=== PATIENT | male | born 1960 | race African-American/Black ===

== ENCOUNTER → 2020-03-15 | Outpatient (CLI) | payer OTHER ==
[~2020-03-15] MED LIST: DULA0.75 SQ; METF10007 PO; PRAZ1CAP2 PO; SIMV20TA18 PO; SPIR50TA4 PO
[2020-03-15 15:37] LABS: BASO % 1 % (0-3); EOS # 0.1 x10^3/uL (0.0-0.7); EOS % 2 % (0-3); HEMATOCRIT 37.6 % (39.0-53.0); HEMOGLOBIN 12.7 g/dL (13.0-17.5); LYMPH # 1.4 x10^3/uL (1.0-4.8); LYMPH % 25 % (24-48); MEAN CORPUSCULAR HEMOGLOBIN 29 pg (25-35); MEAN CORPUSCULAR HGB CONC 34 g/dL (31-37); MEAN CORPUSCULAR VOLUME 85 fL (79-100); MONO # 0.4 x10^3/uL (0.0-1.1); MONO % 6 % (0-9); NEUT # 3.9 x10^3/uL (1.8-7.7); NEUT % 66 % (31-73); PLATELET COUNT 232 x10^3/uL (140-400); RED BLOOD COUNT 4.41 x10^6/uL (4.30-5.70); RED CELL DISTRIBUTION WIDTH 15.9 % (11.5-14.5); WHITE BLOOD COUNT 5.8 x10^3/uL (4.0-11.0)
[2020-03-15 15:46] LABS: PROTHROMBIN TIME PATIENT 13.5 SEC (11.7-14.0)
--- NOTE | 2020-03-15 15:47 | EKG ---
[facility] [address] [place] [address] Test Date: 2020-03-15 Test Time: 15:46:35 Pat Name: HAFSA GOLDEN Department: Room: Gender: M Miner Helper: SETH : 1960 Requested By: BECK OJEDA Order Number: [id number] Reading MD: Juan Munoz MD Measurements Intervals [place] Rate: 92 P: 59 DC: 162 QRS: 33 QRSD: 78 T: 41 QT: 326 QTc: 408 Interpretive Statements SINUS RHYTHM NON-SPECIFIC ST/T CHANGES Electronically Signed On 03-17-2020 11:41:59 CDT by Juan Munoz MD
[2020-03-15 15:53] LABS: ALBUMIN 3.5 g/dL (3.4-5.0); C-REACTIVE PROTEIN 10.7 mg/L (0-3.3); CALCIUM 8.6 mg/dL (8.5-10.1); GFR 92.2; POTASSIUM 4.2 mmol/L (3.5-5.1)
--- NOTE | 2020-03-15 16:17 | RAD ---
EXAM: Chest, 2 views. HISTORY: Preoperative evaluation. COMPARISON: None. FINDINGS: 2 views of the chest are obtained. There is no infiltrate, pleural effusion or pneumothorax. There is linear atelectasis or scarring within the lingula. IMPRESSION: No acute pulmonary finding. Electronically signed by: Marsha Balderas MD (03/15/2020 4:14 PM) [id number]
[2020-03-16 02:09] LABS: HEMOGLOBIN A1C 6.6 % (4.8-5.6)
== END ==
LOC: SURGPAT 14:30
PROVIDERS: ATTEND Orthopaedic Surgery
DX: Z01.818 Encounter for other preprocedural examination (principal); Z11.59 Encounter for screening for other viral diseases; M25.551 Pain in right hip
CPT/HCPCS: 36415; 71046; 80048; 82040; 82306; 83036; 85025; 85610; 85730; 86140; 87641; 93005

== ENCOUNTER → 2020-03-25 | Outpatient (CLI) | payer OTHER | END | disposition home or self-care (01) | LOC: LAB 14:17 | PROVIDERS: ATTEND Orthopaedic Surgery | DX: Z11.59 Encounter for screening for other viral diseases (principal) | CPT/HCPCS: U0003-CS ==

== ENCOUNTER 2020-03-29 07:30 | Inpatient (IN) | payer OTHER ==
[~2020-03-29] VITALS: Ht 176.5 cm; Wt 145.1 kg
[~2020-03-29 07:30] MED LIST changes: +HYDROmorphone 2 MG/ML VIAL IV PRN; +IV RINGERS,LACTATED 1000ML 1,000 ML IV SCH; +LIDOCAINE 1% PF 2 ML VIAL. ID PRN; +MORPHINE SULFATE 2 MG/ML VIAL. IV PRN; +MORPHINE SULFATE 5 MG, KETOROLAC 30MG VIAL 30 MG, ROPIVacaine 0.5% PF 60 ML, EPINEPHrin... INT ART ONE; +ONDANSETRON PF 4 MG/2 ML VIAL. IV PRN; +PROCHLORPERAZINE 10 MG/2 ML VIAL. IV PRN; +fentaNYL PF VIAL 100 MCG/2 ML VIAL IV PRN
[2020-03-29] MEDS ORDERED: LIDOCAINE 2% PF 5 ML VIAL. ONE (12:03)
[2020-03-29] MEDS ORDERED: PROPOFOL 10 MG/ML (20ML) VIAL. IV ONE (12:03)
[2020-03-29] MEDS ORDERED: ONDANSETRON PF 4 MG/2 ML VIAL. ONE ×2 (12:03→15:08)
[2020-03-29] MEDS ORDERED: DEXAMETHASONE SOD PHOS 4 MG/ML VIAL ONE ×2 (12:03→15:08)
[2020-03-29] MEDS ORDERED: fentaNYL PF VIAL 100 MCG/2 ML VIAL ONE ×4 (12:31→22:41)
[2020-03-29] MEDS ORDERED: MIDAZOLAM HCL/PF 2 MG/2 ML VIAL. ONE (12:32)
[2020-03-29] MEDS ORDERED: MELOXICAM 7.5 MG TABLET PO PRN (13:00)
[2020-03-29] MEDS ORDERED: TRANEXAMIC ACID 1,000 MG in IV NS 50ML -- 1ST BAG INJ ONE (13:00)
[2020-03-29] MEDS ORDERED: ACETAMINOPHEN 500 MG TABLET PO PRN (13:00)
[2020-03-29] MEDS ORDERED: GABAPENTIN 300 MG CAPSULE. PO PRN (13:00)
[2020-03-29 13:33] LABS: PROTHROMBIN TIME PATIENT 12.6 SEC (11.7-14.0)
--- NOTE | 2020-03-29 14:38 | HP ---
ADMIT DATE: 03/29/2020 PREOPERATIVE HISTORY AND PHYSICAL CHIEF COMPLAINT: Right hip pain. HISTORY OF PRESENT ILLNESS: The patient is a 59-year-old male who had initially seen Dr. Luis before he left surgical specialty center at [facility] and was apparently referred to another physician in [facility] for a total hip arthroplasty and he reports for about the past year, increased pain in the right hip area and increasing pain to turn his leg outward and really hurts to walk, especially with increased activity. He also has some numbness in the front of his hip, numbness in the front of his thigh as well, particularly at night. PAST MEDICAL HISTORY: Borderline diabetic. PAST SURGICAL HISTORY: Right hip replacement in 2017, left leg surgery, spine surgery, appendectomy and eye surgeries. FAMILY HISTORY: Mother and father are alive and healthy as well as 3 brothers, 5 sisters and 2 daughters, all healthy. SOCIAL HISTORY: Denies smoking, alcohol or drug use. MEDICATIONS: List is significant for metformin, simvastatin, paroxetine, Hyzaar, and Tylenol. ALLERGIES: SEASONAL ALLERGIES TO [place]WE[place]. REVIEW OF SYSTEMS: Indicate that he got evaluated by Dr. Solano, primary care physician yesterday and received medical evaluation and clearance. He denies any chest pain, shortness of breath, fever, chills or constitutional symptoms. Basic complaints are only the right hip pain, anterior thigh numbness and radiating pain down the right leg. PHYSICAL EXAMINATION: HEENT: Atraumatic, normocephalic. HEART: Regular rate and rhythm. LUNGS: Clear to auscultation bilaterally. ABDOMEN: Benign. EXTREMITIES: Examination of the right hip reveals pain on external rotation and with ambulation, does not seem to be grossly unstable at present, leg lengths are equal. He does have some paresthesia over the anterior thigh in about a football type area. He hurts at any extremes of range of motion of the right hip. Normal examination of the contralateral hip aside from slight terminal range of motion restriction and normal alignment, stability, bilateral knees and ankles and also some minor trochanteric bursitis over the right hip. IMAGING: X-rays show a malaligned acetabular component, well-fixed femoral component and showing significant superior wear and edge-loading of the polyethylene on the right total hip. The acetabular component is certainly malpositioned and there is no clear evidence of loosening, however. ASSESSMENT: 1. History of right total hip arthroplasty. 2. Right hip pain and acetabular component malposition and wear. 3. Osteoarthritis, left hip. TREATMENT PLAN: I went over the x-rays with him and we had talked in detail previously about the malpositioning of the acetabular component causing the wear, it is not clear how long this was going on or foot was this way from the start or had moved, but he is exhibiting significant wear from the component placed too vertically and needs revision of the acetabular component. He also has degenerative change in the left hip, that pain is not as severe as what he is experiencing on the right. He wished to proceed with revision of the right hip and we had discussed the possibility of instability, nerve or blood vessel damage, leg length inequality, medical or other anesthetic complications among others and covered risks, benefits, postoperative course in detail. All his questions were answered and he wishes to proceed with surgical evaluation and treatment, which can occur today following his evaluation and preoperative primary care physician evaluation. BECK OJEDA MD DR: DEAN/cathy JOB#: [id number] / [id number]
[2020-03-29] MEDS ORDERED: TRANEXAMIC ACID 1,000 MG in IV NS 50ML -- 2ND BAG INJ ONE (15:00)
[2020-03-29] MEDS ORDERED: SEVOFLURANE 31 TO 60 MINUTES. IH ONE (15:08)
[2020-03-29] MEDS ORDERED: SEVOFLURANE > 120 MINUTES. IH ONE (17:48)
[2020-03-29] MEDS ORDERED: ceFAZolin SODIUM IV Push 1 GM VIAL. IVP ONE (19:13)
[2020-03-29] MEDS ORDERED: VANCOMYCIN 1 GM VIAL. ONE (21:41)
[2020-03-29] MEDS: fentaNYL PF VIAL 100 MCG/2 ML VIAL IV PRN ×2 (22:45→22:55)
[2020-03-29 23:00] VITALS: BP 113/74
[2020-03-29] MEDS ORDERED: diphenhydrAMINE 50 MG/ML VIAL IVP PRN (23:00)
[2020-03-29] MEDS ORDERED: IV NORMAL SALINE 1000ML BAG 1,000 ML IV SCH (23:00)
[2020-03-29] MEDS ORDERED: CALCIUM CARBONATE 500 MG TAB.CHEW PO PRN (23:00)
[2020-03-29] MEDS ORDERED: 0.9 % SODIUM CHLORIDE 10 ML DISP.SYRIN. IV PRN (23:00)
[2020-03-29] MEDS ORDERED: fentaNYL PF VIAL 100 MCG/2 ML VIAL IVP PRN (23:00)
[2020-03-29] MEDS ORDERED: ZOLPIDEM 5 MG TABLET. PO PRN (23:00)
[2020-03-29] MEDS ORDERED: DEXTROSE 50% 25 GM / 50ML DISP.SYRIN. IV PRN (23:00)
[2020-03-29] MEDS ORDERED: PROCHLORPERAZINE 5 MG TABLET. PO PRN (23:00)
[2020-03-29 23:30] VITALS: BP 107/67
--- NOTE | 2020-03-29 23:47 | PDOC4 ---
Operative Note Operative Note Date of surgery: 03/29/2020 Preoperative diagnosis: Painful right total hip arthroplasty with acetabular malposition and superior polyethylene wear Postoperative diagnosis: Same with extensive formation heterotopic acetabular bone. Operative procedure: Extensive debridement and revision acetabular component to a dual mobility construct Surgeon: Kary Captain Of Guards: Shady fernandez Anesthesia: General Estimated blood loss: 400 cc Complications: None Operative indications: Please see my orthopedic clinic note and detailed preoperative history and physical for detailed operative indications and note that the patient has had about a year of severe pain from his total hip arthroplasty which was done in 2017. He was found to have malposition and severe wear of his acetabular polyethylene. I went over with him the malposition and the need for repositioning of the acetabulum and the concern for possible instability infection nerve or blood vessel damage leg length inequality medical or other anesthetic complications among others all his questions were answered and he wishes to proceed with surgical evaluation and treatment having given informed consent Operative text: Patient was identified procedure verified patient placed in the supine position on the [place] fracture table. After adequate amounts of general anesthesia were administered he was positioned with both legs placed in traction boots with both legs and minimal traction. The right hip was prepped and draped in the standard sterile fashion and after timeout was performed patient procedure identified and verified an anterior approach was carried out to the right hip as follows: An incision was made just lateral and distal to the ante rior superior iliac spine extending along the course of the tensor fascia lana. The fascia was opened and tensor fascia lana was retracted laterally and the investing fascia was used to protect the rectus femoris and other anterior structures as the anterior hip capsule was exposed. An H-type capsulotomy was performed to expose the anterior hip joint and noted to have significant heterotopic bone formation and calcification in the hip capsule. The lateral aspect of the acetabulum in particular was noted to be very overgrown with heterotopic bone and despite release of the capsule was noted to be very stiff and difficult to dislocate. Despite external maximal rotation the overgrown bone was noted to capture the unstable femoral head from the vertically placed acetabular cup and severely worn liner. When the femoral head was finally able to be dislocated due to removal of the overgrown bone the femoral head was tapped off the femoral stem and the acetabulum was exposed and due to the fact that an elevated liner and screw fixation was implemented the liner was removed by backing it out with a screw. The acetabular screws were removed and the polyethylene had to be trimmed in an attempt to reinsert and use it as a stabilizer for the acetabular removal tool. The blades were carefully placed around the periphery of the acetabulum which was loosened with essentially no bone loss. Reaming was carried out up to a size 55 and slight medialization carried out under fluoroscopic guidance. Thorough irrigation was carried out with bactisure followed by a liter of normal saline solution a size 56 cluster hole Biomet ingrowth acetabular cup was inserted and fixed with a single superiorly directed screw with excellent fixation. The acetabular cup was placed in proper inclination and slight anteversion as verified under fluoroscopic guidance. To help with concerns of instability a dual mobility construct was trial fit initially with a -3 mm total neck length which resulted in a slightly shorter leg length and offset on the right compared to the contralateral hip and a dual mobility construct was ultimately placed with a 44 mm inner diameter polished surface impacted into the acetabulum and a 44 x 28 mm vitamin E liner assembled with a ceramic 28 mm +0 neck length femoral head which were preassembled on the back table. Due to his significant stiffness the dual mobility construct was placed in the acetabulum and the femoral neck reduced and impacted from laterally to engage the Anderson taper. He was noted to have excellent stability in all degrees of range of motion and leg length and offset were anatomically restored under fluoroscopic guidance compared to the contralateral hip. Thorough irrigation again carried out normal saline solution. Closure of the fascia was carried out with #1 PDS strata fix in a running fashion subcutaneous closure with buried Vicryl suture skin closure with sergio a danilo dressing with Acticoat was placed and patient was returned to recovery room in stable condition having tolerated the procedure well. He was noted to be appropriately moving all his extremities wiggling his toes up and down on both feet in recovery room with pain well controlled. Shady fernandez was present for the procedure and assisted in patient positioning prepping draping retraction closure and dressing placement BECK OJEDA MD Mar 29, 2020 23:47
[2020-03-29 23:59] VITALS: BP 112/59
[2020-03-30] VITALS (8 sets, daily range): BP systolic 88–140; BP diastolic 40–76
[2020-03-30] MEDS: MORPHINE SULFATE 2 MG/ML VIAL. IVP PRN ×2 (00:23→02:26)
[2020-03-30] MEDS: ceFAZolin SODIUM 3 GM in IV DEXTROSE 5% 100ML 100 ML IV SCH ×3 (01:03→12:17)
[2020-03-30] MEDS: ONDANSETRON PF 4 MG/2 ML VIAL. IVP SCH ×4 (04:43→17:44)
[2020-03-30] MEDS: oxyCODONE IR 5 MG TABLET PO PRN ×3 (04:43→21:07)
[2020-03-30] MEDS ORDERED: WARFARIN 7.5 MG TABLET. PO ONE (05:00)
[2020-03-30] MEDS: ONDANSETRON ODT 4 MG TAB.RAPDIS. PO SCH ×4 (06:00→17:44)
[2020-03-30] MEDS ORDERED: MAGNESIUM HYDROXIDE 2,400 MG/30 ML ORAL.SUSP. PO PRN (06:00)
[2020-03-30 06:05] LABS: PROTHROMBIN TIME PATIENT 13.9 SEC (11.7-14.0)
--- NOTE | 2020-03-30 06:12 | NUR ---
Pharmacy Warfarin Dosing Note S:Pharmacy consulted to assist with anticoagulation therapy started with target INR: 1.6 - 2.5 O:HAFSA GOLDEN is a 59 year old M with [facility] LABS: Last INR: 1.1 Last HGB: 11 Last HCT: Last PLT: Last dose of 7.5 mg given on 03/30/20 at 0430 Previous Regimen: Vitamin K given: N Drug Interaction Changes: Ongoing Drug Interactions: A:INR of 1.1 is below desired range. Target range for this patient is: 1.6 - 2.5 P: Warfarin dose: 7.5MG AT 0430 Bridge Therapy: None Next INR due DAILY Pharmacy anticoagulation service will continue to follow. SHERI ROBERSON RPH, 03/30/20611 Signed: 03/30/20 at 0612 by SHERI ROBERSON RPH PHA
[2020-03-30] MEDS: GABAPENTIN 100 MG CAPSULE. PO SCH ×3 (06:21→22:02)
[2020-03-30] MEDS: traMADol 50 MG TABLET PO SCH ×3 (06:22→17:43)
--- NOTE | 2020-03-30 08:00 | NUR ---
Carrillo catheter removed and tolerated well. wants to get up. assisted tot he side of the bed; becomes dizzy and "room is spinning". blood pressure dropped. when room stops spinning transferred to recliner. systolic blood pressure dropped to 88. bolus of 500cc ivf given.
--- NOTE | 2020-03-30 08:36 | PDOC ---
PROGRESS NOTES Date of Service DATE: 03/30/20 TIME: 08:31 Subjective Subjective Problems overnight: Right hip has some soreness but not as painful as it was preoperatively, major complaint is some numbness in his right hand and elbow pain Objective Vital Signs Vital Signs Date Time Temp Pulse Resp B/P (MAP) Pulse Ox O2 Delivery O2 Flow Rate FiO2 03/30/20 06:28 98.2 102 20 140/76 (97) 97 Room Air 2.0 98.2 Physical Exam On exam hip incision is clean dry intact with danilo dressing leg lengths are equal distal motor function and sensation are all intact to the lower extremity. Examination of the right upper extremity reveals some paresthesia in the ulnar nerve distribution on the right but motor function is intact throughout the r ight upper extremity Labs Laboratory Tests Test 03/29/20 13:08 03/29/20 13:29 03/29/20 22:17 03/30/20 04:15 Prothrombin Time 12.6 SEC (11.7-14.0) 13.9 SEC (11.7-14.0) Prothromb Time International Ratio 1.0 (0.8-1.1) 1.1 (0.8-1.1) Glucose (Fingerstick) 88 mg/dL (70-99) 180 mg/dL (70-99) Hemoglobin 11.0 g/dL (13.0-17.5) Test 03/30/20 07:02 Glucose (Fingerstick) 153 mg/dL (70-99) Laboratory Tests Test 03/29/20 13:08 03/29/20 13:29 03/29/20 22:17 03/30/20 04:15 Prothrombin Time 12.6 SEC (11.7-14.0) 13.9 SEC (11.7-14.0) Prothromb Time International Ratio 1.0 (0.8-1.1) 1.1 (0.8-1.1) Glucose (Fingerstick) 88 mg/dL (70-99) 180 mg/dL (70-99) Hemoglobin 11.0 g/dL (13.0-17.5) Test 03/30/20 07:02 Glucose (Fingerstick) 153 mg/dL (70-99) Imaging Intra-Op imaging shows proper orientation of the acetabular component and anglican of leg length and offset fluoroscopically compared to the con tralateral left side Assessment Assessment POD#1 revision right hip arthroplasty Plan Plan of Care Overall the hip feels good and we will continue to mobilize him with physical therapy avoiding extremes of range of motion Although he appeared to be well-padded probably has some pressure on the ulnar nerve at the elbow responsible for the ulnar nerve paresthesias. I went over with him the cause that is suspected and that we would observe this over the next several days and weeks and it may resolve slowly. Noted that motor function is intact throughout Coumadin anticoagulation status post total hip Justicifation of Admission Dx: Justifications for Admission: Justification of Admission Dx: Yes (Large complicated revision procedure of his right hip taking about 6 hours, risk for instability and also has ulnar nerve paresthesias on the right) BECK OJEDA MD Mar 30, 2020 08:36
[2020-03-30] MEDS: ACETAMINOPHEN 500 MG TABLET PO SCH ×3 (08:45→21:06)
[2020-03-30] MEDS: MELOXICAM 7.5 MG TABLET PO SCH (08:45)
[2020-03-30] MEDS: MULTIVITAMIN with MINERAL TABLET. PO SCH (08:45)
[2020-03-30] MEDS: FERROUS SULFATE 325 MG TABLET. PO SCH ×2 (08:45→16:33)
[2020-03-30] MEDS: SENNOSIDES/DOCUSATE 8.6/50MG TABLET. PO SCH (08:45)
[2020-03-30] MEDS: metFORMIN 500 MG TABLET PO SCH ×2 (08:46→16:34)
[2020-03-30] MEDS: SPIRONOLACTONE 25 MG TABLET PO SCH (08:51)
--- NOTE | 2020-03-30 10:00 | NUR ---
blood pressure is better and is able to attend rehab class.unable to walk down
[2020-03-30] MEDS ORDERED: ONDANSETRON ODT 4 MG TAB.RAPDIS. PO PRN (12:00)
[2020-03-30] MEDS ORDERED: ONDANSETRON PF 4 MG/2 ML VIAL. IVP PRN (12:00)
--- NOTE | 2020-03-30 12:37 | NUR ---
Zofran held no nausea or vomiting noted
--- NOTE | 2020-03-30 15:18 | NUR ---
Pharmacy Warfarin Dosing Note S:Pharmacy consulted to assist with anticoagulation therapy started with target INR: 1.6 - 2.5 O:HAFSA GOLDEN is a 59 year old M with [facility] LABS: Last INR: 1.1 Last HGB: 11 Last HCT: Last PLT: Last dose of 7.5 mg given on 03/30/20 at 0435 Previous Regimen: Vitamin K given: N Drug Interaction Changes: Ongoing Drug Interactions: A:INR of 1.1 is below desired range. Target range for this patient is: 1.6 - 2.5 P: Warfarin dose: 5 mg Today at 1600. Bridge Therapy: None Next INR due tomorrow. Pharmacy anticoagulation service will continue to follow. Gerard Mendiola [facility], 03/30/20 [id number]
[2020-03-30] MEDS ORDERED: WARFARIN 5 MG TABLET. PO ONE (16:00)
[2020-03-30] MEDS ORDERED: BISACODYL 10 MG SUPP.RECT. PR PRN (16:00)
--- NOTE | 2020-03-30 17:37 | NUR ---
Zofran held no nausea or vomiting noted
[2020-03-30] MEDS: PRAZOSIN 1 MG CAPSULE. PO SCH (21:00)
[2020-03-30] MEDS: SIMVASTATIN 20 MG TABLET PO SCH (21:00)
[2020-03-31] MEDS: traMADol 50 MG TABLET PO SCH ×4 (00:12→17:07)
[2020-03-31] MEDS: ACETAMINOPHEN 500 MG TABLET PO SCH ×4 (03:00→20:53)
[2020-03-31 06:00] VITALS: BP 118/67
[2020-03-31] MEDS: GABAPENTIN 100 MG CAPSULE. PO SCH ×3 (06:08→22:05)
[2020-03-31 07:07] LABS: HEMATOCRIT 29.8 % (39.0-53.0); HEMOGLOBIN 9.9 g/dL (13.0-17.5)
[2020-03-31] MEDS: MULTIVITAMIN with MINERAL TABLET. PO SCH (07:55)
[2020-03-31] MEDS: FERROUS SULFATE 325 MG TABLET. PO SCH ×2 (07:55→17:07)
[2020-03-31] MEDS: SPIRONOLACTONE 25 MG TABLET PO SCH (07:55)
[2020-03-31] MEDS: metFORMIN 500 MG TABLET PO SCH ×2 (07:55→17:06)
[2020-03-31] MEDS: SENNOSIDES/DOCUSATE 8.6/50MG TABLET. PO SCH (07:55)
[2020-03-31] MEDS: MELOXICAM 7.5 MG TABLET PO SCH (07:55)
[2020-03-31] MEDS: oxyCODONE IR 5 MG TABLET PO PRN ×3 (07:57→20:50)
[2020-03-31 09:50] VITALS: BP 122/70
--- NOTE | 2020-03-31 11:21 | NUR ---
Pharmacy Warfarin Dosing Note S:Pharmacy consulted to assist with anticoagulation therapy started with target INR: 1.6 - 2.5 O:HAFSA GOLDEN is a 59 year old M with [facility] LABS: Last INR: 1.5 Last HGB: 9.9 Last HCT: Last PLT: Last dose of 5 mg given on 03/30/20 at 0435 Previous Regimen: Vitamin K given: N Drug Interaction Changes: Ongoing Drug Interactions: A:INR of 1.5 is below desired range. Target range for this patient is: 1.6 - 2.5 P: Warfarin dose: 3 mg Today at 1600 Bridge Therapy: None Next INR due IN AM Pharmacy anticoagulation service will continue to follow. JELENA SEGURA [facility], 03/31/20 1125
[2020-03-31] MEDS ORDERED: WARFARIN 3 MG TABLET. PO ONE (16:00)
[2020-03-31 19:43] VITALS: BP 119/63
[2020-03-31] MEDS: SIMVASTATIN 20 MG TABLET PO SCH (20:52)
[2020-03-31] MEDS: PRAZOSIN 1 MG CAPSULE. PO SCH (20:52)
[2020-04-01] MEDS: traMADol 50 MG TABLET PO SCH ×3 (00:28→12:00)
[2020-04-01] MEDS: ACETAMINOPHEN 500 MG TABLET PO SCH ×3 (03:51→15:56)
[2020-04-01] MEDS: oxyCODONE IR 5 MG TABLET PO PRN ×4 (03:51→15:56)
[2020-04-01] MEDS: GABAPENTIN 100 MG CAPSULE. PO SCH ×2 (05:57→15:56)
[2020-04-01 06:04] VITALS: BP 117/65
--- NOTE | 2020-04-01 06:22 | PDOC ---
PROGRESS NOTES Date of Service DATE: 04/01/20 TIME: 06:17 Delayed entry from [facility] approximately 9:45 PM 03/31/2020 Subjective Subjective Problems overnight: Had an orthostatic type episode when getting up earlier, resolved with additional IV fluid. right hip weak but less painful than before surgery, reports that arm is waking up and ring finger feels much more normal small finger still slightly numb but much improved Objective Vital Signs Vital Signs Date Time Temp Pulse Resp B/P (MAP) Pulse Ox O2 Delivery O2 Flow Rate FiO2 04/01/20 06:04 99.1 96 20 117/65 (82) 97 Room Air 99.1 03/30/20 06:28 2.0 Physical Exam Cy dressing with minimal spotty drainage no redness or erythema around wound hip slightly swollen leg lengths equal distal neurovascular status intact Labs Laboratory Tests Test 03/30/20 07:02 03/30/20 11:56 03/30/20 16:41 03/31/20 06:10 Glucose (Fingerstick) 153 mg/dL (70-99) 136 mg/dL (70-99) 111 mg/dL (70-99) Hemoglobin 9.9 g/dL (13.0-17.5) Hematocrit 29.8 % (39.0-53.0) Mean Corpuscular Hemoglobin Concent 33 g/dL (31-37) Prothrombin Time 18.0 SEC (11.7-14.0) Prothromb Time International Ratio 1.5 (0.8-1.1) Test 03/31/20 06:11 Glucose (Fingerstick) 140 mg/dL (70-99) Assessment Assessment POD#2 revision right hip arthroplasty Plan Plan of Care Arm paresthesia continues to resolve, observe Had a syncopal type episode resolved with bolus of fluid Continue ambulate with physical therapy Coumadin anticoagulation Justicifation of Admission Dx: Justifications for Admission: Justification of Admission Dx: Yes (Large complicated revision procedure of his right hip taking about 6 hours, risk for instability and also has ulnar nerve paresthesias on the right) Comments: Orthostatic episode earlier on ambulation and transfer, required fluid bolus BECK OJEDA MD Apr 01, 2020 06:22
[2020-04-01 06:58] LABS: HEMATOCRIT 26.5 % (39.0-53.0); HEMOGLOBIN 8.9 g/dL (13.0-17.5)
[2020-04-01 07:27] LABS: PROTHROMBIN TIME PATIENT 18.1 SEC (11.7-14.0)
[2020-04-01] MEDS: MELOXICAM 7.5 MG TABLET PO SCH (08:41)
[2020-04-01] MEDS: FERROUS SULFATE 325 MG TABLET. PO SCH (08:42)
[2020-04-01] MEDS: SENNOSIDES/DOCUSATE 8.6/50MG TABLET. PO SCH (08:42)
[2020-04-01] MEDS: MULTIVITAMIN with MINERAL TABLET. PO SCH (08:42)
[2020-04-01] MEDS: SPIRONOLACTONE 25 MG TABLET PO SCH (08:42)
[2020-04-01] MEDS: metFORMIN 500 MG TABLET PO SCH (08:42)
--- NOTE | 2020-04-01 09:00 | NUR ---
danilo dressing changed related to serous drainage; cleansed with chlor prep then new danilo applied. tolerated well. he is rating his pain "4". medicated prior to therapy. he has good sensation,pulses and motion in the lower extremities. he little finger on his right hand remains "semi-numb". he has feeling in his right ring finger.
--- NOTE | 2020-04-01 12:45 | NUR ---
Pharmacy Warfarin Dosing Note S:Pharmacy consulted to assist with anticoagulation therapy started with target INR: 1.6 - 2.5 O:HAFSA GOLDEN is a 59 year old M with [facility] LABS: Last INR: 1.5 Last HGB: 8.9 Last HCT: Last PLT: Last dose of 3 mg given on 03/31/20 at 0435 Previous Regimen: Vitamin K given: N Drug Interaction Changes: Ongoing Drug Interactions: A:INR of 1.5 is below desired range. Target range for this patient is: 1.6 - 2.5 P: Warfarin dose: 5 mg Prior to Discharge Bridge Therapy: None Next INR due on saturday Pharmacy anticoagulation service will continue to follow. JELENA SEGURA [facility], 04/01/20 [id number]
[2020-04-01 13:46] VITALS: BP 112/84
[2020-04-01] MEDS ORDERED: OXYC10TA PO (13:52)
--- NOTE | 2020-04-01 13:55 | DISCH ---
DISCHARGE INSTRUCTIONS Condition on Discharge Condition on Discharge: Stable Activity After Discharge Activity Instructions for Disc: Walk in house, Other, see below (Avoid extremes of hip motion) Other activity instructions: USE WALKER AT ALL TIMES;R EMOVE BATTERY PACK ON THURSDAY 03/29 TAPE END DOWN Bathing Instructions: Shower-keep dressing dry, No Tub Bath until see Lifting Instructions after Dis: No heavy lifting, No pulling or pushing, Do not lift >10 pounds Exercise Instruction after Dis: Exercise per therapy Driving Instructions after Dis: Do not drive Weight Bearing Status after Di: No restrictions, Full weight bearing, As tolerated Diet after Discharge Diet after Discharge: Diabetic No Calorie Level Wound Incision Care Wound/Incision Care: Ice to area for comfort, Keep wound/cast CDI, Keep wound elevated, Do not change dressing Other wound/incision instructi: DO NOT CHANGE DRESSING; IF SATURATED CALL DR. OJEDA'S OFFICE Checks after Discharge DC Comment: INCREASE FRUITS, EGETABLES AND FIBER; ATTEMPT BM Q 2-3 DAYS Follow-Up Follow Up With: FOLLOW UP WITH DR. ALBARRAN IS March AT 0915 Treatment/Equipment after DC Comment: PT/INR TO BE DRAWN EVERY WEDNESDAY 04/04;04/11;04/18 & 3 Warfarin Follow-Up Warfarin Follow UP: [facility]NAGE COUMADIN ??? CALL [phone] BECK OJEDA MD Apr 01, 2020 13:55
[2020-04-01] MEDS ORDERED: WARFARIN 5 MG TABLET. PO ONE (14:00)
[2020-04-01] MEDS ORDERED: WARF-31 PO (14:13)
--- NOTE | 2020-04-01 16:00 | NUR ---
reviewed discharge instructions with patient. reviewed restrictions to activities of daily living such as bathing driving incisional care and reviewed new medications such as pain med and Coumadin blood thinner. how to take care of BHAVESH drain. given follow up with Dr. Preston
[2020-04-05] MEDS ORDERED: NON FORMULARY ITEM (Dulaglutide (Trulicity) 0.75 MG) SQ SCH (09:00)
--- NOTE | 2020-04-08 08:24 | DS ---
DATE OF DISCHARGE: 04/01/2020 PRINCIPAL DIAGNOSIS: Right hip pain following a previous total hip arthroplasty elsewhere. POSTOPERATIVE DIAGNOSIS: Right hip pain following a previous total hip arthroplasty elsewhere with expected malposition of the acetabular component and severe superior polyethylene wear. PROCEDURE: Removal of acetabular component and revision to dual mobility hip construct. DISPOSITION: Discharge home with outpatient physical therapy. Follow up with Dr. Preston in 2 weeks. ACTIVITY: Weightbearing as tolerated. Avoid extremes of range of motion with the right hip. MEDICATIONS: Include oxycodone 10 mg one p.o. q. 4 hours p.r.n. pain. The Coumadin as directed by Anticoagulation Clinic, resume any outpatient medications. BRIEF DESCRIPTION OF HOSPITAL COURSE: The patient underwent a very difficult revision, but without any surgical complications of a right total hip arthroplasty. Postoperatively, he was having significant pain and requiring IV pain medications. He mobilized slowly at first with physical therapy and made better progress as his hospital course progressed. He remained medically stable in terms of hemoglobin and hematocrit and note that his distal neurovascular status was intact throughout his postoperative course as well and he was discharged home in stable condition. BECK PRESTON MD DR: DEAN/cathy JOB#: [id number] / [id number]
== END 2020-04-01 16:30 | disposition home or self-care (01) | DRG 467 ==
LOC: OPSVCIP 12:18 → 4 SOUTHEST 22:59
PROVIDERS: ADMIT Orthopaedic Surgery; ATTEND Orthopaedic Surgery
PROC: 0SPR0JZ Removal of Synthetic Substitute from Right Hip Joint, Femoral Surface, Open Approach (ICD-10-PCS; 2020-03-29)
PROC: 0SP909Z Removal of Liner from Right Hip Joint, Open Approach (ICD-10-PCS; 2020-03-29)
PROC: 0SUA09Z Supplement Right Hip Joint, Acetabular Surface with Liner, Open Approach (ICD-10-PCS; 2020-03-29)
PROC: 0SRR03Z Replacement of Right Hip Joint, Femoral Surface with Ceramic Synthetic Substitute, Open Approach (ICD-10-PCS; principal; 2020-03-29 14:30)
DX: T84.020A Dislocation of internal right hip prosthesis, initial encounter (principal); Z68.42 Body mass index [BMI] 45.0-49.9, adult; T84.84XA Pain due to internal orthopedic prosthetic devices, implants and grafts, initial encounter; Z96.641 Presence of right artificial hip joint; Y83.8 Other surgical procedures as the cause of abnormal reaction of the patient, or of later complication, without mention of misadventure at the time of the procedure; Z90.49 Acquired absence of other specified parts of digestive tract; Z91.048 Other nonmedicinal substance allergy status; Y92.89 Other specified places as the place of occurrence of the external cause; E66.01 Morbid (severe) obesity due to excess calories
CPT/HCPCS: 36415; 76000; 82962; 85014; 85018; 85610; 86850; 86900; 86901; A7015; C1713; C1887; J0171; J0690; J1100; J1885; J2250; J2270; J2405; J2704; J2795; J3010; J3370; J3490; J7030; J7060; J7120; 97116-GP; 97150-GP; 97530-GP; 97535-GO; G0378

== ENCOUNTER 2020-11-14 08:47 | Emergency (ER) | payer OTHER ==
[~2020-11-14] VITALS: Ht 177.8 cm; Wt 145.0 kg
[~2020-11-14 08:47] MED LIST changes: -HYDROmorphone 2 MG/ML VIAL IV PRN; -IV RINGERS,LACTATED 1000ML 1,000 ML IV SCH; -LIDOCAINE 1% PF 2 ML VIAL. ID PRN; -MORPHINE SULFATE 2 MG/ML VIAL. IV PRN; -MORPHINE SULFATE 5 MG, KETOROLAC 30MG VIAL 30 MG, ROPIVacaine 0.5% PF 60 ML, EPINEPHrin... INT ART ONE; -ONDANSETRON PF 4 MG/2 ML VIAL. IV PRN; +OXYC10TA PO; -PROCHLORPERAZINE 10 MG/2 ML VIAL. IV PRN; +WARF-31 PO; -fentaNYL PF VIAL 100 MCG/2 ML VIAL IV PRN
[2020-11-14 08:50] VITALS: BP 129/60
[2020-11-14] MEDS ORDERED: IBUPROFEN 400 MG TABLET. PO ONE (09:15)
--- NOTE | 2020-11-14 09:34 | PHYS DOC ---
Past Medical History Past Medical History: Diabetes-Type II, High Cholesterol, Hypertension Past Surgical History: Hip Replacement Smoking Status: Never Smoker Alcohol Use: None Adult General Chief Complaint Chief Complaint: HIP PAIN HPI HPI Patient is a 60 year old male with past mental history including hyperlipidemia now presents emergency department complaining of new onset of left-sided hip pain after a fall. Patient states that his walking to work this morning when he actually stepped onto a great causing it to unlevel and then causing him to trip and fall onto his left hip. Since that time is been complaining of pain over the left lateral hip rating into the left buttocks. Patient notes pain with ambulation but has been able to bear weight. Denies any numbness or weakness in the lower extremity. Denies any head injury or loss conscious. Review of Systems Review of Systems Constitutional: Denies fever or chills [] Eyes: Denies change in visual acuity, redness, or eye pain [] HENT: Denies nasal congestion or sore throat [] Respiratory: Denies cough or shortness of breath [] Cardiovascular: No additional information not addressed in HPI [] GI: Denies abdominal pain, nausea, vomiting, bloody stools or diarrhea [] : Denies dysuria or hematuria [] Musculoskeletal: Denies back pain or joint pain [] Integument: Denies rash or skin lesions [] Neurologic: Denies headache, focal weakness or sensory changes [] Endocrine: Denies polyuria or polydipsia [] All other systems were reviewed and found to be within normal limits, except as documented in this note. Current Medications Current Medications Current Medications Medications (Trade) Dose Ordered Sig/[facility] Start Time Stop Time Status Last Admin Dose Admin Ibuprofen (Motrin) 800 mg 1X ONCE 11/14/20 09:15 11/14/20 09:16 DC 11/14/20 09:33 800 MG Allergies Allergies Allergies Coded Allergies Type Severity Reaction Last Updated Verified ragweed pollen Allergy Intermediate sneezing 03/29/20 Yes Physical Exam Physical Exam Constitutional: Well developed, well nourished, no acute distress, non-toxic appearance. [] HENT: Normocephalic, atraumatic, bilateral external ears normal, oropharynx moist, no oral exudates, nose normal. [] Eyes: PERRLA, EOMI, conjunctiva normal, no discharge. [] Neck: Normal range of motion, no tenderness, supple, no stridor. [] Cardiovascular:Heart rate regular rhythm, no murmur [] Lungs & Thorax: Bilateral breath sounds clear to auscultation [] Abdomen: Bowel sounds normal, soft, no tenderness, no masses, no pulsatile masses. [] Skin: Warm, dry, no erythema, no rash. [] Back: No tenderness, no CVA tenderness. [] Extremities: Mild left lateral hip tenderness, no cyanosis, no clubbing, ROM intact, no edema. [] Neurologic: Alert and oriented X 3, normal motor function, normal sensory function, no focal deficits noted. [] Psychologic: Affect normal, judgement normal, mood normal. [] Current Patient Data Vital Signs Vital Signs Date Time Temp Pulse Resp B/P (MAP) Pulse Ox O2 Delivery O2 Flow Rate FiO2 11/14/20 08:50 98.6 78 18 129/60 (83) 97 Room Air 98.6 EKG EKG [] Radiology/Procedures Radiology/Procedures [] Course & Med Decision Making Course & Med Decision Making Pertinent Labs and Imaging studies reviewed. (See chart for details) 60-year-old male presenting with mild left-sided hip pain and tenderness after fall. Will obtain x-ray to make sure there is no evidence of hip or femoral fracture and treat the patient symptomatically. 10:29 -negative for fracture. Patient likely with mild contusion and sprain. At this time will discharge home. Dragon Disclaimer Dragon Disclaimer This electronic medical record was generated, in whole or in part, using a voice recognition dictation system. Departure Departure Impression: Primary Impression: Contusion of hip, left Disposition: 01 DC HOME SELF CARE/HOMELESS Condition: GOOD Referrals: PAULA DEVINE MD (PCP) Patient Instructions: Fall Prevention and Home Safety, Hip Pain Additional Instructions: EMERGENCY DEPARTMENT GENERAL DISCHARGE INSTRUCTIONS Thank you for coming to [facility] Emergency Department (ED) today and trusting us with you care. We trust that you had a positive experience in our Emergency Department. If you wish to speak to the department management, you may call the Director at [phone]. YOUR FOLLOW UP INSTRUCTIONS ARE FOLLOWS: 1. Do you have a private Doctor? If you do not have a private doctor, please ask for a resource list of physicians or clinics that may be able to assist you with follow up care. 2. The Emergency Physicain has interpreted your x-rays. The X-Ray specialist will also review them. If there is a change in the findings, you will be notified in 48 hours when at all possible. 3. A lab test or culture has been done, your results will be reviewed and you will be notified if you need a change in treatment. ADDITIONAL INSTRUCTIONS AND INFORMATION: 1. Your care today has been supervised by a physician who is specially trained in emergency care. Many problems require more than one evaluation for a complete diagnosis and treatment. We recommend that you schedule your follow up appointment as recommended to ensure complete treatment of you illness or injury. If you are unable to obtain follow up care and continue to have a problem, or if your condition worsens, we recommend that you return to the ED. 2. We are not able to safely determine your condition over the phone nor are we able to give sound medical advice over the phone. For these safety reasons, if you call for medical advice we will ask you to come to the ED for further evaluation. 3. If you have any questions regarding these discharge instructions please call the ED at [phone]. SAFETY INFORMATION: In the interest of safety, wellness, and injury prevention; we encourage you to wear your sealbelt, if you smoke; quite smoking, and we encourage family to use a protective helmet for bicycling and other sporting events that present an increased risk for head injury. IF YOUR SYMPTOMS WORSEN OR NEW SYMPTOMS DEVELOP, OR YOU HAVE CONCERNS ABOUT YOUR CONDITION; OR IF YOUR CONDITION WORSENS WHILE YOU ARE WAITING FOR YOUR FOLLOW UP APPOINTMENT; EITHER CONTACT YOUR PRIMARY CARE DOCTOR, THE PHYSICIAN WHOSE NAME AND NUMBER YOU WERE GIVEN, OR RETURN TO THE ED IMMEDIATELY. Scripts Naproxen (NAPROSYN) 500 Mg Tablet 1 TAB PO BID for pain, #20 TAB Prov: JANINE ALEXANDRE MD 11/14/20 JANINE ALEXANDRE MD Nov 14, 2020 09:34
--- NOTE | 2020-11-14 09:46 | RAD ---
Pelvis and left hip 3 views INDICATION: Fall and left hip pain COMPARISON: 05/11/2020 pelvis x-ray FINDINGS: The pelvic ring appears intact. The 2 views of the left hip again show marked degenerative change with joint space narrowing and oste ophytic spurring in the acetabulum of the femoral head. No acute fracture or hip dislocation is appar ent. The right hip shows total hip arthroplasty in good alignment. IMPRESSION: No acute fracture or dislocation shown by x-ray with redemonstrated marked left hip degenerative alvarado ge. Electronically signed by: Juan Jose Perez MD (11/14/2020 9:44 AM) [id number]
[2020-11-14] MEDS ORDERED: NAPR-683 PO (10:36)
== END 2020-11-14 11:07 | disposition home or self-care (01) ==
LOC: ER 08:47
DX: S70.02XA Contusion of left hip, initial encounter (principal); E11.9 Type 2 diabetes mellitus without complications; E78.00 Pure hypercholesterolemia, unspecified; I10 Essential (primary) hypertension; Z98.890 Other specified postprocedural states; Z88.8 Allergy status to other drugs, medicaments and biological substances; W01.0XXA Fall on same level from slipping, tripping and stumbling without subsequent striking against object, initial encounter; Y93.89 Activity, other specified; Y92.89 Other specified places as the place of occurrence of the external cause; Y99.8 Other external cause status
CPT/HCPCS: 73502; 99283